=== PATIENT | female | born 1955 | race Caucasian/White ===

== ENCOUNTER 2016-11-11 20:56 | Observation (INO) ==
[2016-11-11] MEDS ORDERED: NITROGLYCERIN SL 0.4 MG TABLET SL STA (21:36)
[2016-11-11] MEDS ORDERED: ONDANSETRON ODT 4 MG TABLET PO STA (21:37)
[2016-11-11 21:44] LABS: Basophils # 0.1 10*3/uL (0.0-0.2); Basophils % 0.5 % (0.0-0.8); Eosinophils # 0.1 10*3/uL (0.0-0.87); Eosinophils % 0.9 % (0.00-10.9); Hematocrit 39.2 VOL% (35.7-47.0); Immature Granulocytes % 0.4 %; Immature Granulocytes Absolute 0.04 #; Lymphocytes # 1.5 10*3/uL (1.4-4.0); Lymphocytes % 15.7 % (21.3-54.2); Mean Corpuscular HGB Conc 33.2 GM/DL (32-36); Mean Corpuscular Hemoglobin 29 PG (27-34); Mean Corpuscular Volume 88.7 FL (87-102); Mean Platelet Volume 10.2 FL (9.6-12.0); Monocytes # 0.7 10*3/uL (0.11-0.8); Monocytes % 6.8 % (1.7-12.7); Neutrophils # 7.3 10*3/uL (1.4-7.4); Neutrophils % 75.7 % (38.7-73.9); Platelet Count 283 T/CUMM (130-400); Red Blood Count 4.42 MC/CUMM (3.8-5.5); Red Cell Distribution Width 15.7 % (9.3-17.3); White Blood Count 9.6 T/CUMM (4-12)
[2016-11-11] MEDS ORDERED: ONDANSETRON ODT 4 MG TABLET PO ONE (21:53)
[2016-11-11] MEDS ORDERED: NITROGLYCERIN SL 0.4 MG TABLET SL ONE (21:54)
[2016-11-11 22:04] LABS: Alanine Aminotransferase 22 U/L (13-56); Albumin 3.9 G/DL (3.4-5.0); Alkaline Phosphatase 83 U/L (45-117); Aspartate Amino Transferase 11 U/L (0-37); Bilirubin,Total < 0.39 MG/DL (0.2-1.0); Blood Urea Nitrogen 27 MG/DL (7-18); Calcium 8.8 MG/DL (8.5-10.1); Free T4 (Free Thyroxine) 2.03 NG/DL (0.76-1.46); Glucose 89 MG/DL (74-106); Osmolality,Calculated 286.1 MOS/KG (273-304); Potassium 3.8 MMOL/L (3.5-5.1); Sodium 142 MMOL/L (136-145); Thyroid Stimulating Hormone 0.525 uIU/ml (0.358-3.74); Total Protein 6.9 G/DL (6.4-8.3); Troponin I Only < 0.015 NG/ML (0.00-0.045)
--- NOTE | 2016-11-11 22:51 | Emergency Department Note ---
Radha Rosas Hilary, am scribing for, and in the presence of, Shawnee Batres DO 21:34. IMedardo Whitney, DO, personally performed the services described in this documentation, ascribed by Stephanie Garcia in my presence, and it is both accurate and complete . Arrival - Arrival Chief Complaint: Chest Pain Stated Complaint: Chest pain ED Nursing Triage Note: CHEST PAIN OFF AND ON ALL DAY, +NAUSEA,+SOB,+ DIAPHORESIS. 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 Pt states that the pain started this morning in her back in between her shoulder blades and it gradually got worse and moved to her chest, radiating down her left arm. She describes it as crushing pressure. She states that she has chronic back pain but hasn't had this pain before. She confirms nausea, chest pain, and SOB but denies vomiting or blurry vision. Pt has a PMHx of HTN,Depression, thyroid disorder (nash),and takes a pre diabetic shots. Pt took a ASA before arriving to the ED. No other complaints or problems stated in the ED. Pain is present currently. Onset (ago): hour(s) Consistency: constant Severity: moderate Severity scale (1-10): 3 Quality: other (pressure) Allergies/Adverse Reactions: Allergies Allergy/AdvReac Type Severity Reaction Status Date / Time morphine Allergy RASH Verified 11/11/16 21:14 Review of System - Review of System 12 point system: reviewed and no additional remarkable complaints except as stated - Review of System Constitutional: Absent: fever Eyes: Absent: vision change Respiratory: Present: respiratory distress (SOB) Cardiovascular: Present: chest pain Gastrointestinal: Present: nausea. Absent: vomiting Musculoskeletal: Present: arm pain (left arm radiating from chest pain) Medical,Surgical,& Family Hx - Medical History Cardio: History of: Hypertension Psychological: History of: Depression Endocrine: History of: Thyroid Disorder (NASH'S DISEASE) Musculoskeletal: History of: Back/Neck Problems - Social History Smoking Status: Never smoker Exam Vital Signs: Vital Signs Temperature 98.3 F 11/11/16 21:06 Pulse Rate 78 11/11/16 21:06 Respiratory Rate 18 11/11/16 21:06 Blood Pressure 125/73 11/11/16 21:06 O2 Sat by Pulse Oximetry 96 11/11/16 21:06 - General General appearance: alert, in distress (uncomfortable) - Head Head exam: Present: atraumatic, normocephalic - Eye Eye exam: Present: normal appearance, PERRL, EOMI - ENT ENT exam: Present: mucous membranes moist, TM's normal bilaterally. Absent: mucous membranes dry - Neck Neck exam: Present: full ROM, trachea midline. Absent: tenderness - Chest Chest inspection: Present: symmetric chest wall rise. Absent: tenderness - Respiratory Respiratory exam: Present: normal lung sounds bilaterally. Absent: respiratory distress - Cardiovascular Cardiovascular exam: Present: regular rate, normal rhythm, normal heart sounds. Absent: murmur, rubs, gallop - Abdominal Exam Abdominal exam: Present: soft, normal bowel sounds. Absent: distention, tenderness - Extremities Exam Extremities exam: Present: full ROM. Absent: tenderness - Back Exam Back exam: Present: full ROM. Absent: tenderness - Neurological Exam Neurological exam: Present: alert, oriented X3, CN II-XII intact. Absent: motor sensory deficit - Psychiatric Psychiatric exam: Present: normal affect, normal mood - Skin Skin exam: Present: warm, dry, intact, normal color. Absent: rash Course Course Narrative: strong concern for acs type trouble. nitro given with complete relief. I recommended pt stay for chest pain rule out and stress test in the morning. trop negative TSh normal. - Reevaluation(s) Reevaluation #1: nitro completely relieved chest pain Results - Labs CBC & BMP: 11/11/16 21:25 11/11/16 21:25 Lab Results: I have reviewed the patients labs Labs: Laboratory Tests 11/11/16 21:25 WBC 9.6 RBC 4.42 Hgb 13.0 Hct 39.2 Plt Count 283 Neut % (Auto) 75.7 H Lymph % (Auto) 15.7 L Laboratory Tests 11/11/16 21:25 Sodium 142 Potassium 3.8 Chloride 106 Carbon Dioxide 26 BUN 27 H BUN/Creatinine Ratio 27.00 H Troponin I < 0.015 Total Protein 6.9 Free T4 2.03 H - EKG EKG results: interpreted by JOHNY, WNL, sinus rhythm - Diagnostic Findings Procedure: Chest x-ray: image reviewed by me, report reviewed by me (WNL) Disposition Clinical Impression: Chest pain Case discussed with: patient Disposition: Still a Patient Condition: Stable
[2016-11-11] MEDS ORDERED: ONDANSETRON 4 MG/2 ML VIAL IV PRN (23:06)
[2016-11-11] MEDS ORDERED: DOCUSATE SODIUM 100 MG CAPSULE PO PRN (23:06)
[2016-11-11] MEDS ORDERED: ACETAMINOPHEN 325 MG TABLET PO PRN (23:06)
--- NOTE | 2016-11-11 23:16 | Hospitalist History & Physical ---
Assessment and Plan (1) Angina pectoris Status: Acute Assessment and plan: Patient is admitted with a chest pain suggestive of angina as her pain better with nitroglycerin. I have explained patient that even GI pain can be relieved with nitroglycerin. She does have a risk factor for heart disease and hypertension but there is no history of exertional angina. Patient is admitted for observation will do repeat EKG and troponin the morning. Will consult cardiology to assist with working up chest pain/angina Current Visit: Yes (2) Hypertension Status: Chronic Assessment and plan: Blood pressure is controlled I will review her home medications when list available Current Visit: Yes (3) Tristan's thyroiditis Status: Chronic Assessment and plan: Patient has history of Tristan thyroiditis with hypothyroidism. She is on Synthroid. Noted she has elevated T4 look like little overcorrection need to have a dose adjustment of the Synthroid. TSH and T4 level then need to be measured in few weeks to make sure she has achieved euthyroid level Current Visit: Yes History of Present Illness Chief complaint: Chest pain History of present illness: Ms. Livingston is a 61 year old female with history of hypertension and Tristan's thyroiditis with hypothyroidism. She has a recent overseas visit to [facility]. She came to the ER with history of chest pain. According to patient pain in the chest started earlier today but it was on and off got worse at around 830 tonight. Pain was in the midline chest and felt like somebody standing on the chest. It was radiating to the left arm arm and shoulder. There is some shortness of breath associated with nausea but no vomiting or diaphoresis no cough no fever no abdominal pain. No heartburn reported. She took aspirin prior to coming to ER. At around 10 PM in the ER she was given nitroglycerin and after the pain is relieved. She is now chest pain-free denies any shortness of breath and asymptomatic completely. Her EKG was sinus rhythm without any ST-T changes her troponin level was within normal limit. She has a hemoglobin of 13 hematocrit 39.2 BUN 27 creatinine 1.0. Heart 3 T4 was 2.03 and TSH is 0.525. Patient is admitted for observation Allergies Allergy/AdvReac Type Severity Reaction Status Date / Time morphine Allergy RASH Verified 11/11/16 21:14 Medical,Surgical,& Family Hx - Medical History Cardio: History of: Hypertension Psychological: History of: Depression Endocrine: History of: Thyroid Disorder (TRISTAN'S DISEASE) Musculoskeletal: History of: Back/Neck Problems - Surgical History Surgical History: noncontributory HEENT Surgeries: Surgical HX of: Tonsilectomy & Adenoidectomy Reproductive Surgeries: Surgical HX of;: Section, Hysterectomy - Family History Family History: Reports;: Family Heart Disease - Social History Smoking Status: Never smoker Frequency of Alcohol Use: Occasionally Exam - Constitutional Vitals: Period Temp Pulse Resp BP Sys/Hopkins Pulse Ox Last 24 Hr 98.3 F 78 18 125/73 96 General appearance: morbidly obese - Head Head exam: Present: normal inspection, normocephalic, atraumatic - Eye Eye exam: Present: EOMI. Absent: conjunctival injection, nystagmus Pupils: Present: LISE, normal accommodation - ENT ENT exam: Present: normal exam, normal oropharynx - Neck Neck exam: Present: normal inspection, other (Supple) - Respiratory Respiratory exam: Present: clear to auscultation bilaterally. Absent: rales, rhonchi, wheezes - Cardiovascular Cardiovascular exam: Present: regular rate and rhythm, systolic murmur. Absent : tachycardia - GI/Abdominal GI/Abdominal exam: Present: normal bowel sounds, soft. Absent: distended, tenderness - Extremities Exam Extremities exam: Present: normal inspection. Absent: edema - Neurological Exam Neurological exam: Present: alert, oriented X3, other (No gross focal deficit) Results - Labs CBC & BMP: 11/11/16 21:25 11/11/16 21:25 Lab Results: I have reviewed the past 24 hour labs
[2016-11-11] MEDS ORDERED: ENOXAPARIN 40 MG/0.4 ML SYRINGE SUBCUT SCH (23:30)
[2016-11-11] MEDS ORDERED: NITROGLYCERIN SL 0.4 MG TABLET SL PRN (23:57)
[2016-11-12] MEDS: METOPROLOL TARTRATE 25 MG TABLET PO SCH ×2 (01:19→09:17)
[2016-11-12] MEDS ORDERED: LEVOTHYROXINE 200 MCG TABLET PO SCH (07:00)
--- NOTE | 2016-11-12 07:11 | EKG Report ---
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
--- NOTE | 2016-11-12 07:45 | XRay Report ---
XR chest 1V Indication: Chest pain. Chest one view: No comparison. Heart size and mediastinal contour are normal. There is diffuse mild parabronchial thickening present. No focal infiltrates are shown. Pleural spaces are clear. Bones are intact. Impression: Mild airways disease such as bronchitis or viral syndrome. No focal pneumonia. PROCEDURE INTERPRETED AT [facility] DEPARTMENT OF RADIOLOGY Final Report Signed by: Carlos Sparks M.D.
[2016-11-12 08:21] VITALS: BP 110/60
[2016-11-12] MEDS ORDERED: PANTOPRAZOLE 40 MG TABLET PO SCH (09:00)
[2016-11-12] MEDS ORDERED: ASPIRIN 325 MG TABLET PO SCH (09:00)
--- NOTE | 2016-11-12 09:49 | Discharge Summary ---
Hospital Course - Hospital Course Hospital Course: 61-year-old white female admitted to the hospital with chest pain. Her cardiac enzymes have been negative. She has no further chest pain. She is being discharged home to follow-up with her primary radiology scheduler in [place]. She has had no adverse events. Her home medications were reviewed and reconciled. She will need to follow-up as an outpatient with her primary care physician. - Time spent with patient Time with patient DS: Less than 30 minutes Diagnosis - Discharge Diagnosis (1) Chest pain Status: Resolved (2) Hypertension Status: Chronic (3) Tristan's thyroiditis Status: Chronic Discharge Plan - Discharge Data Disposition: Disch To Home/Self Care Condition at Discharge: Stable Discharge Diet: advance to your usual diet Activity: resume usual activities as tolerated Hygiene: no restrictions Weight Bearing at Discharge: full weight bearing Driving: no restrictions Contact your physician if you experience:: fever over 101 - Discharge Medications Continue Escitalopram Oxalate 20 mg PO DAILY Trazodone HCl 100 mg PO DAILY Levothyroxine Tab [Synthroid Tab] 225 mcg PO DAILY Triamterene/Hctz 75-50 Tab [Maxzide 75-50] 1 tablet PO QOTHER DAY Meloxicam 7.5 mg PO DAILY buPROPion XL [Wellbutrin Xl] 450 mg PO AC Dulaglutide [Trulicity] See Protocol SUBCUT DIRECTED Omeprazole 40 mg PO DAILY Pramipexole Di-HCl [Pramipexole Dihydrochloride] 1.5 mg PO DAILY Diphenoxylate/Atrop 2.5-0.025 [Lomotil Tab] 5 mg PO DAILY Olmesartan/Hydrochlorothiazide [Olmesartan-Hctz 40-25 mg Tab] 1 each PO DAILY - Follow Up or Referral - Forms/Instructions Additional Discharge Instructions: Follow-up with your primary care physician and primary radiology scheduler in [place]. Exam - Constitutional Vitals: Period Temp Pulse Resp BP Sys/Hopkins Pulse Ox Last 24 Hr 97.1 F-98.4 F 52-78 16-20 100-125/59-73 96-99 Exam: Constitutional System: No distress. No tremulousness. Head: Normocephalic, atraumatic. Ears, Nose and Throat System: No pain or tenderness. No epistaxis or discharge Eyes System: Pupils equal, round, and reactive. Extraocular muscles intact. Neck: Supple, without adenopathy, No jugular venous distention. No thyromegaly, neck mass, or prior surgery apparent. Respiratory System: Chest clear to auscultation. Cardiovascular System: Heart with regular rate and rhythm. No murmur. GI System: Abdomen soft, nontender. Normo active bowel sounds present. Musculoskeletal System: limbs with no pedal edema. Full distal pulses. Neurological System: No discernable sensory deficit. No aphasia Psychiatric System: Conversation is rational Discharge Results Labs on day of discharge: Labs from last 24 hours 11/12/16 11/12/16 11/11/16 04:10 01:15 21:25 WBC RBC Hgb Hct MCV MCH MCHC RDW Plt Count MPV Neut % (Auto) Lymph % (Auto) [place] % (Auto) Eos % (Auto) Baso % (Auto) Neut # (Auto) Lymph # (Auto) [place] # (Auto) Eos # (Auto) Baso # (Auto) Immature Gran % Nucleated RBC % Immature Gran # Nucleated RBCs # Sodium 142 Potassium 3.8 Chloride 106 Carbon Dioxide 26 Anion Gap 13.8 BUN 27 H Creatinine 1.00 GFR Calculation 76 BUN/Creatinine Ratio 27.00 H Glucose 89 Calculated Osmolality 286.1 Calcium 8.8 Total Bilirubin < 0.39 AST 11 ALT 22 Alkaline Phosphatase 83 Total Creatine Kinase 63 Troponin I < 0.015 < 0.015 < 0.015 Total Protein 6.9 Albumin 3.9 Globulin 3.0 Albumin/Globulin Ratio 1.3 Free T4 2.03 H TSH 3rd Generation 0.525 11/11/16 21:25 WBC 9.6 RBC 4.42 Hgb 13.0 Hct 39.2 MCV 88.7 MCH 29 MCHC 33.2 RDW 15.7 Plt Count 283 MPV 10.2 Neut % (Auto) 75.7 H Lymph % (Auto) 15.7 L [place] % (Auto) 6.8 Eos % (Auto) 0.9 Baso % (Auto) 0.5 Neut # (Auto) 7.3 Lymph # (Auto) 1.5 [place] # (Auto) 0.7 Eos # (Auto) 0.1 Baso # (Auto) 0.1 Immature Gran % 0.4 Nucleated RBC % 0.0 Immature Gran # 0.04 Nucleated RBCs # 0.00 Sodium Potassium Chloride Carbon Dioxide Anion Gap BUN Creatinine GFR Calculation BUN/Creatinine Ratio Glucose Calculated Osmolality Calcium Total Bilirubin AST ALT Alkaline Phosphatase Total Creatine Kinase Troponin I Total Protein Albumin Globulin Albumin/Globulin Ratio Free T4 TSH 3rd Generation DS: Provider Date of admission: 11/11/16 23:06 Primary care physician: . No PCP Attending physician on admission: Reuben Torres MD Consults: 11/11/16 23:06 Consult to Physician [CONS] Routine Comment: Chest pain/angina Consulting Provider: Consult to Specialist Group: Cardiology When should Consulting Provider be notified: In am Discharging clinician: Lisa Howard MD Expected date of discharge: 11/12/16
--- NOTE | 2016-11-13 04:52 | EKG Report ---
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
== END 2016-11-12 11:45 | disposition home or self-care (01) ==
LOC: N.ED 20:56 → N.EDINP 20:56 → SUATTDRO 23:06 → N.TELEN 23:34
PROVIDERS: ADMIT Internal Medicine; ATTEND Family Medicine